=== PATIENT | female | born 1960 | race Caucasian/White ===

== ENCOUNTER 2020-02-13 17:31 | Emergency (ER) | payer BC ==
[~2020-02-13] VITALS: Ht 167.6 cm; Wt 84.1 kg
[2020-02-13 17:49] VITALS: BP 121/83
== END 2020-02-13 18:35 | disposition home or self-care (01) ==
LOC: ER 17:32
DX: B34.9 Viral infection, unspecified (principal); R51.9 Headache, unspecified; M79.18 Myalgia, other site; R50.9 Fever, unspecified; Z20.828 Contact with and (suspected) exposure to other viral communicable diseases
CPT/HCPCS: 36415; 99282